=== PATIENT | male | born 1950 | race Caucasian/White ===

== ENCOUNTER → 2025-01-14 | Outpatient (CLI) | payer MEDICARE, OTHER, SELFPAY ==
--- NOTE | 2025-01-14 11:04 | MRI_ITS ---
PROCEDURE: BRAIN W/WO CONTRAST 01/14/2025 REASON FOR EXAM: SENSORINEURAL HEARING LOSS TECHNIQUE: Procedure Code: MRIBRWW Modality: MR Procedure: BRAIN W/WO CONTRAST Multiplanar and multisequence images were obtained. CONTRAST: [place] scan VOLUME: 17 mL FINDINGS: Study performed through the brain and internal auditory canals. Normal midline structures. Normal craniocervical junction. No pathologic diffusion restriction. There is a mild degree of cerebral atrophy with compensatory ventricular prominence. Normal orbits. No pathologic flow voids. No significant intracranial demyelination. Coronal imaging demonstrates normal internal auditory canal caliber. Symmetric fluid signal within the vestibule and cochlear. No findings of labyrinthine hemorrhage. No abnormal skull base enhancement. No dural sinus thrombosis. No abnormal dural or meningeal enhancement. MRI/Brain W/WO Contrast IMPRESSION: No etiology for hearing loss identified Reading [facility]
== END | disposition home or self-care (01) ==
LOC: MRI 10:51
PROVIDERS: PCP Internal Medicine; Referring Provider Otolaryngology Otolaryngology/Facial Plastic Surgery; Visit Provider Otolaryngology Otolaryngology/Facial Plastic Surgery
DX: H90.3 Sensorineural hearing loss, bilateral (principal)
CPT/HCPCS: 70553; A9575; A4216